=== PATIENT | female | born 1965 | race Caucasian/White ===

== ENCOUNTER → 2020-07-19 13:40 | Outpatient (BNVA) | payer BC, SELFPAY | PROVIDERS: PCP Internal Medicine; Visit Provider Hospitalist ==

== ENCOUNTER 2021-04-29 12:59 | Outpatient (REF) | payer BC, SELFPAY ==
--- NOTE | 2021-04-29 17:29 | PFT_ITS ---
Forced vital capacity is slightly decreased. FEV1 is moderately decreased. XMU98-79 markedly decreased. Post bronchodilator therapy, there is a small, but significant improvement in FEV1, UQK79-49, and MVV. Total lung capacity normal and residual volume is moderately increased. Diffusion capacity normal. CONCLUSION: Moderately severe obstructive airway disorder. There is positive response to bronchodilator therapy. These results are consistent with asthma/COPD overlap syndrome. Clinical correlation is recommended. MD BRIDGER Allen/LUCIO / [id number]
== END 2021-04-29 13:00 | disposition home or self-care (01) ==
LOC: HO.RESP 12:59
PROVIDERS: PCP Internal Medicine; Visit Provider Hospitalist
DX: J44.9 Chronic obstructive pulmonary disease, unspecified (principal)
CPT/HCPCS: 94060; 94727; 94729

== ENCOUNTER → 2021-07-07 12:49 | Outpatient (BNVA) | payer BC, SELFPAY | PROVIDERS: PCP Internal Medicine; Visit Provider Hospitalist | DX: J44.0 Chronic obstructive pulmonary disease with (acute) lower respiratory infection (principal) | CPT/HCPCS: 94640; 99212 ==

== ENCOUNTER 2022-05-01 12:50 | Outpatient (REF) | payer BC, SELFPAY ==
--- NOTE | ~2022-05-01 | XR_ITS ---
EXAMINATION: XR CHEST CLINICAL INFORMATION: COPD COMPARISON: None TECHNIQUE: 2 views of the chest were obtained. FINDINGS: The cardiac and mediastinal contours are stable. The lungs are clear. There is no pleural effusion or pneumothorax. There is curvature of the proximal thoracic spine to the left. XR/XR chest 2V IMPRESSION: No evidence for acute disease in the chest.
--- NOTE | 2022-05-01 17:34 | PFT_ITS ---
Forced vital capacity 74%, FEV1 64%, FEV1/FVC ratio 68. VEQ77-68 38% and MVV is 71%. Post bronchodilator therapy, there is a slight improvement in NXY22-75. Total lung capacity 90% and residual volume is 98%. Diffusion capacity 93%. Conclusion obstructive airway disorder, mild to moderately severe. No response to bronchodilator therapy except for slight improvement in IUS56-90. Clinical correlation is recommended. MD BRIDGER Allen/LUCIO / [id number]
== END 2022-05-01 12:51 | disposition home or self-care (01) ==
LOC: HO.RESP 12:50
PROVIDERS: PCP Internal Medicine Medical Oncology; Visit Provider Hospitalist
DX: J44.9 Chronic obstructive pulmonary disease, unspecified (principal)
CPT/HCPCS: 71046; 94060; 94727; 94729

== ENCOUNTER 2025-02-13 13:32 | Outpatient (AMB) | payer BC, SELFPAY ==
[2025-02-13 13:47] VITALS: BP 100/60; PULSE 80; O2SAT 98; BMI 22.0
--- NOTE | 2025-02-13 13:47 | A.OFFVIS_ITS ---
Vital Signs 3 02/13/25 13:47 Height 5 ft 3 in Weight 124 lb BMI 22.0 BP 100/60 Blood Pressure Location Lt brachial Position Sitting Pulse 80 Pulse Source Pulse Oximeter Pulse Oximetry (%) 98 Oxygen Delivery Method Room Air Intake Visit Reasons: Asthma Allergies No Known Allergies Allergy (Verified 02/13/25 13:55) HPI Comments Details: The patient is a 59-year-old woman with a known history of asthma COPD overlap syndrome. Her last pulmonary function studies demonstrated a moderate degree of obstruction. She did have a chest x-ray which was reasonable. The major issue is that she has significant air trapping noted on her pulmonary function studies. We talked about the importance per sleep breathing and exercises to minimize the air trapping. She is starting to go back to work. She is using a mask the whole days she is at work. This is very uncomfortable for her. She will try to get a cloth mask which should be more comfortable. She should also use got goes or she will to minimize exposure to the COVID-19 infection. The patient has been using Breo daily. She stopped using the singular. She is having increasing nasal congestion and also cough. We talked about restarting the singular S this is a very state medication it for her asthma and also for her nasal congestion and allergies. 07/19/2020 the patient is here for pulmonary follow-up visit. Overall she is doing very well. She does have the Breo that she uses but not all the time. She uses a rescue inhaler less than twice a week. She has been staying active and she is exercising. She denies any significant coughing or any limitations. She has not required any prednisone again. She also stopped using the singular because she did not see any difference. We also looked at her previous pulmonary function studies demonstrating moderate COPD with air trapping. I do for see that her repeat pulmonary function studies are likely to be much improved. The patient also had a chest x-ray back in 2018 demonstrating no acute disease. Will have her come back sometime in late fall and she can have a repeat PFT and chest x-rays to get any baseline. 04/29/2021 the patient is here for a pulmonary follow-up visit. Overall she continues to do well. Denies any significant worsening of her respiratory symptoms. Continues to have some degree of dyspnea on exertion. Pija-aw-vehseqdy severity. She has responded well to the Breo. She really does not use her rescue inhaler. She denies any exposures to secondhand smoke at this time or any potential fumes or toxins. We did review her pulmonary function studies again demonstrating moderate COPD. Will retest her for awful 1 DNA genotype at this time. The patient does have some wheezing on examination. In based on her obstructive airway disease I do think we need to optimize her to Trelegy to improve her overall respiratory capacity. She didn't have her CXR. 07/07/2021 the patient is here for a PE pulmonary follow-up visit. Apparently the patient has been having worsening respiratory symptoms for the last 3 weeks. The patient states that initially started like a viral syndrome. She was tested for COVID and which was negative. Subsequently after that she started developing worsening cough and has not stopped for the last several weeks. She has not been able to sleep because her cough is worse at nighttime. She had been using Trelegy inhaler but she did not feel was helpful. Therefore she wanted to go back to [facility]. In the meantime she did come into the office to be assessed. The patient does have significant wheezing on examination. She was given 1 DuoNeb treatment and he did improve her symptoms and losing her cough. The patient does have a trip coming up to [place] in the coming days. Therefore will treated for COPD exacerbation and also lower respiratory infection. The patient did respond well to the nebulizer and therefore she can consider getting a nebulizer if her symptoms persist when she comes back in [place]. We did review her blood work including alpha-1 antitrypsin genotype which was normal, MM. Will reassess the patient in 3 months. the patient was supposed to have an x-ray and also blood work and they do not appear to be available as of yet. The patient does have a trip planned for Sunday. However, she should undergo an x-ray specially if she is not better. 05/01/2022 the patient is here for a pulmonary follow-up visit. Overall the patient is doing well. She continues use her respiratory therapy as prescribed. She has not required her rescue inhaler. she needs to increase her exercise activity. We did talk about different programs to consider such as the pulmonary wellness online. She did undergo pulmonary function studies which we did review together and also compared to her PFTs from last year. It appears that overall she is doing better significant better in some areas. Although she continues to have a fixed obstruction consistent moderate COPD. The patient is a nonsmoker. Her alpha-1 testing was negative. from an asthma standpoint the patient seems to be doing well on current therapy. We did talk about alternative in additional therapies to consider. She did not do well with Trelegy.. 02/13/2025 the patient is here for a pulmonary follow-up visit. Overall the patient has been doing okay. Although she underwent a CT scan of the heart to assess for any early heart disease. It did last picker a pulmonary nodule and therefore she was sent for referral for a formal CT scan of the chest. I did personally review the CAT scan at [facility] from December demonstrating a 5-6 mm nodular density in the right upper lobe. Appeared to have be punctate with some calcifications. I did try to find her old imaging study that could revealed that area to see if this is acute or chronic but we could not find anything at [facility] or elsewhere. Therefore the patient will need follow-up. The the patient does have a history melanoma that was resected. Based on that close follow-up will be warranted. Will plan to repeat a CAT scan 4 months from the last 1 to follow-up with this irregular 6 mm pulmonary nodule. She has other punctate nodules that are less concerning. From a respiratory status the patient is doing good but she has a cough. The CAT scan also demonstrates evidence of chronic bronchitis consistent with asthmatic bronchitis. Will go ahead and request blood work at this time. She does have inhalers and she does respond well to Breo and also has a rescue inhaler. She has tried other inhalers in the past and has not done well. Will plan to follow-up with her in pre to 4 months after her CAT scan and she is going to undergo blood work to assess for the phenotype of her asthmatic bronchitis. [facility] Medical History (Updated 02/15/25 @ 20:14 by John Shultz MD) Melanoma Pulmonary nodule Asthma COPD (chronic obstructive pulmonary disease) COPD exacerbation Asthma-COPD overlap syndrome Social History Patient Tobacco Use Status: Never used Tobacco Review of Systems Const Reports daytime sleepiness, Reports difficulty sleeping, Denies fever(s) and Denies night sweats ENT Denies change in voice, Denies lip swelling, Denies mouth pain, Reports nasal congestion, Reports nasal discharge and Denies tongue swelling Card Denies chest pain Resp Reports cough and Reports wheezing GI Denies abdominal pain Musc Denies no additional complaints Neuro Denies Neuro-related abnormal movements Psych Denies no additional complaints Neal/Lymph Denies easy bleeding and Denies lymphadenopathy Aller/Immun Denies lip swelling, Denies tongue swelling and Reports wheezing Physical Exam Vital Signs: Last Vital Signs Pulse 80 02/13/25 13:47 BP 100/60 02/13/25 13:47 Pulse Ox 98 02/13/25 13:47 Oxygen Delivery Method Room Air 02/13/25 13:47 BMI result Body Mass Index 22.0 Const General: alert HEENT General nose exam: Abnormal external nose present and Nasal discharge present Eyes Pupils: Equal, round and reactive pupils present Neck Neck: Yes normal visual inspection, Yes full ROM and Yes no lymphadenopathy Chest Chest palpation & inspection: normal inspection of the chest Resp Auscultation: no rhonchi, no wheezes and diminished lung sounds Cardio Rate: regular rate Rhythm: regular rhythm Heart sounds: S1 normal heart sound present and S2 normal heart sound present GI Palpation (GI): Soft to palpation and nontender Auscultation: normal bowel sounds General: Yes no CVA tenderness Back/Spine/Pelvis Back: no CVA tenderness Skin General skin exam: rashes and/or lesions noted Neuro Cranial nerves: Yes Equal, round and reactive pupils present Results Reviewed Results Reviewed: Assessment & Plan Assessment & Plan (1) Pulmonary nodule: Code(s): R91.1 - Solitary pulmonary nodule Category: Medical (2) Melanoma: Code(s): C43.9 - Malignant melanoma of skin, unspecified Category: Medical Qualifiers: Melanoma location: upper extremity including shoulder Laterality: right Qualified Code(s): C43.61 - Malignant melanoma of right upper limb, including shoulder (3) Asthma-COPD overlap syndrome: Code(s): J44.9 - Chronic obstructive pulmonary disease, unspecified Category: Medical (4) COPD (chronic obstructive pulmonary disease): Code(s): J44.9 - Chronic obstructive pulmonary disease, unspecified Category: Medical Qualifiers: COPD type: COPD with acute lower respiratory infection Qualified Code(s): J44.0 - Chronic obstructive pulmonary disease with (acute) lower respiratory infection Plan continue Breo BONG as needed Needs CT chest 3 months, prefers [facility] Bloodwork F/U in 3-4 months Orders: Orders 2 Complete Blood Count Auto Diff 02/13/25 J45.909 - Unspecified asthma, uncomplicated Immunoglobulin E 02/13/25 J45.909 - Unspecified asthma, uncomplicated Erythrocyte Sedimentation Rate 02/13/25 J45.909 - Unspecified asthma, uncomplicated CRIS Reflex Titer and Pattern 02/13/25 J45.909 - Unspecified asthma, uncomplicated Hypersensitive Pneumonitis Prf 02/13/25 J45.909 - Unspecified asthma, uncomplicated, R91.8 - Other nonspecific abnormal finding of lung field CT chest wo IV con 3 Months C43.9 - Malignant melanoma of skin, unspecified, R91.1 - Solitary pulmonary nodule Medications: Changed 2 From albuterol sulfate 90 mcg/actuation (ProAir HFA) 2 puffs inhalation Q6H PRN To albuterol sulfate 90 mcg/actuation (ProAir HFA) 2 puffs inhalation Q6H PRN 3 ea 3RF shortness of breath or wheezing 90 days Refilled 2 Breo Ellipta 100-25 mcg/dose (fluticasone furoate-vilanterol) 1 inh inhalation DAILY 180 ea 3RF 30 days NS J44.9 - Chronic obstructive pulmonary disease, unspecified Coding Level of Care Code Est Pt Level 4 (66788) Complex EM visit Add On G2211 Diagnoses Pulmonary nodule R91.1 Malignant melanoma of right upper extremity including shoulder C43.61 Melanoma location: upper extremity including shoulder Laterality: right Asthma-COPD overlap syndrome J44.9 Chronic obstructive pulmonary disease with acute lower respiratory infection J44.0 COPD type: COPD with acute lower respiratory infection Time Spent (min) 18
== END 2025-02-13 14:34 | disposition home or self-care (01) ==
LOC: HO.HPS 13:33
PROVIDERS: PCP Physician Assistant Medical; Visit Provider Hospitalist
DX: R91.1 Solitary pulmonary nodule (principal); C43.61 Malignant melanoma of right upper limb, including shoulder; J44.9 Chronic obstructive pulmonary disease, unspecified; J44.0 Chronic obstructive pulmonary disease with (acute) lower respiratory infection
CPT/HCPCS: 99214

== ENCOUNTER 2025-02-13 13:32 | Outpatient (REF) | payer BC, SELFPAY ==
--- OUTSIDE RECORDS SUMMARY | 2009-03-09 | XMS_ITS | Encounter Summary ---
Author Organization [facility] Address [address] [place] [phone] Phone Care Team Providers Care Remote Sensing Program Manager Name Role Phone Unavailable Primary Care Provider Unavailabl e Encounter Details Date Type Department Care Team (Late st Contact Info) Description 03/09/2009 Hospital Encounter [facility],Outside Imaging [address] [place] [address] Unknown, Unknown, Social History Tobacco Use Types Packs/Day Years Used Date Smoking Tobacco: Never Smokeless Tobacco: Never Alcohol Use Standard Drinks/Week Comments Yes 0 (1 standard drink = 0.6 oz pur e alcohol) Education Answer Date Recorded Are you interested in more education? Not on jenny e 10/20/2022 Are you concerned about learning? Not on file 10/20/2022 No 10/20/2022 No 10/20/2022 Digital Access Answer Date Recorded No 11/18/2022 No 11/18/2022 No 11/18/2022 Reliable internet access at home? Not on file 11/18/2022 Device with a working camera? Not on file Comments Unknown Sex and Gender Information Value Date Recorded Sex Assigned at Not on file Legal Sex Female 10:32 PM EDT Gender Identity Not on file Sexual Orientation Not on file documented as of this encounter Plan of Treatment Upcoming Encounters Date Type Department Care Team (Late st Contact Info) Description 06/01/2025 2:20 PM EST Office Visit [facility] [address] [place] [id number] Tamara Lennon MD [address] [place] [address] [address] [place] [address] documented as of this encounter Procedures Procedure Name Priority Date/Time Associated Diagnosis Comments US THYROID GLAND OUTSIDE (NO INTERPRETATION) Routine 03/09/2009 12:00 AM EDT documented in this encounter Results * US Thyroid Gland Outside (No Interpretation) (03/09/2009 12:00 AM EDT) Narrative SYSTEMGENERATED, DOCUMENTATION - 01/22/2025 2:48 PM EDT This study is for PACS storage only and not for interpretation. us Unknown Unknown MD [facility] W/OUT INT ERPRETATION Final Result documented in this encounter Visit Diagnoses Not on filedocumented in this encounter Additional Source Comments The information contained in this document represents components of the legal health record. It is not the complete legal health record.[facility]
--- OUTSIDE RECORDS SUMMARY | 2025-02-11 23:59 | XMS_ITS | Continuity of Care Document ---
Author Organization [facility] Address [address] [place] [address]- Care Team Providers Care Telecommunications Administrator Name Role Phone Tosha Medina Primary Care Physician Encounter [facility] NBR [id number] Date(s): 01/12/25 - 02/11/25 [facility] [address] [place] [id number]- Encounter Type: Triage Allergies, Adverse Reactions, Alerts No Known Allergies Immunizations Given and Recorded Vaccine Date Status Refusal Reason influenza virus vaccine, inactivated 04/24/13 Pastor rded influenza virus vaccine, inactivated 04/27/10 Pastor rded Medications Breo Ellipta 100 mcg-25 mcg/inh inhalation powder 1 puffs, Inhalation, Daily, # 30 each, 0 Refills, Maintenance, 08/31/19 11:54:00 AM EDT, Powder Start Date: 08/31/19 Status: Ordered Quantity: 30.0 Unit: each Repeat number: 1 CeleXA 40 mg oral tablet 40 mg, 1, tablet, By Mouth, Daily, # 90 tablet, Refills 3, Tot. Refills 3, Maintenance, 07/24/24 11:30:00 AM EST, Route to Pharmacy Electronically, [facility], Partial fill uponpatient request if the prescription is for a schedule II opioid drug., 161, cm, 04/04/24 15:56:00 EDT, Height Start Date: 07/24/24 Status: Ordered Quantity: 90.0 Unit: tablet Repeat number: 4 Flovent Diskus Inhalation, 2 times a day, 0 Refills, Maintenance, 04/07/21 3:59:00 PM EDT, Partial fill upon patient request if the prescription is for a schedule II opioid drug. Start Date: 04/07/21 Status: Ordered Repeat number: 1 valacyclovir 1 gm oral tablet 20 each, 0 Refill(s), TAKE 2 TABLETS BY MOUTH 1 TIME. REPEAT IN 12 HOURS, 0 Refills, 08/29/24 10:27:00 AM EST, Partial fill upon patient request if the prescription is for a schedule II opioid drug. Start Date: 08/29/24 Status: Ordered Repeat number: 1 Problem List Condition Confirmation Course Effective Dates Status H ealth Status Informant Asthma Confirmed Active Depression Confirmed Active Family history of ovarian cancer Confirmed Active Avulsion fracture of ankle Confirmed Active Goiter Confirmed Active Malignant melanoma Confirmed Active Neck pain Confirmed Active Osteopenia Confirmed Active Encounter for well woman exam with routine gynecological exam Confirmed Active Annual physical exam Confirmed Active Post-nasal drip Confirmed Active Social History Social History Type Response Smoking Status Never smoker entered on: 11/04/15 Sex Sex Representation Female (finding) Patient Care team information Care Team Personnel Name: Tosha Medina Position: S PCO Associate Professional Member Role: PCP Address: [address] [place] [address] Telecom: Care Team Related Persons Name: CASTILLO CHAVARRIA Name: JAMSHID GUZMÁN Insurance Providers Guarantor name: DELVIS GAVINGRAEME Health Plan Information #: 1 Payer: [employer] PPO Payer Identifier: NA Member Number: [id number] Group Number: [id number] Subscriber Identifier: [id number] Relationship to Subscriber: spouse Coverage Type: NA Coverage Verification Date: NA Telecom: NA Address:
--- OUTSIDE RECORDS SUMMARY | 2025-02-13 14:39 | XMS_ITS | Clinical Summary ---
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 marvel's thyroiditis; COMMENT: 06/2014 No aggressive features in thyroid compared to previous U/S; Mohsen's Thyroiditis, multiple sides nodules (L>R); s/p needle biopsy 05/03 Family History Medical History Relation Name Comments Stroke Father Alzheimer's, hy pertension, diabetes Uterine cancer Mother diabetes, art hritis-back, hip replacement, hypertension, depression Relation Name Status Comments Father Mother Social History Tobacco Use Types Packs/Day Years Used Date Smoking Tobacco: Never Smokeless Tobacco: Never Alcohol Use Standard Drinks/Week Comments Yes 0 (1 standard drink = 0.6 oz pur e alcohol) Comments Unknown Sex and Gender Information Value Date Recorded Sex Assigned at Not on file Legal Sex Female 11:19 PM EST Gender Identity Not on file Sexual Orientation Not on file Obstetrics History Plan of Treatment Upcoming Encounters Date Type Department Care Team (Late st Contact Info) Description 03/02/2025 1:15 PM EDT Appointment [facility] Ultrasound [address] [place] [address] Health Maintenance Due Date Last Done Comments Breast Cancer Screening 1965 DTaP,Tdap,and Td Vaccines (1 - Tdap) 1986 Hepatitis B Vaccines (1 of 3 - 19+ 3-dose series) 1986 Pneumococcal Vaccine: 50+ Ye ars (1 of 2 - PCV) 1986 Cervical Cancer Screening: P ap Smear 02/22/1988 Zoster Vaccines (1 of 2) 2017 Colorectal Cancer Screening: Colonoscopy 05/28/2022 HIV Screening 05/28/2022 Hepatitis C Screening 05/28/2022 Social Influencers of Health Screening 05/28/2022 COVID-19 Vaccine (1 - 2023-2 5 season) 2024 Depression Screening 06/25/2024 Influenza Vaccine (#1) 2025 HIB Vaccines Aged Out No longer eligi ble based on patient's age to complete this topic HPV Vaccines Aged Out No longer eligi ble based on patient's age to complete this topic Hepatitis A Vaccines Aged Out No long er eligible based on patient's age to complete this topic IPV Vaccines Aged Out No longer eligi ble based on patient's age to complete this topic MMR Vaccines Aged Out No longer eligi ble based on patient's age to complete this topic Meningococcal ACWY Vaccine Aged Out N o longer eligible based on patient's age to complete this topic Meningococcal B Vaccine Aged Out No l onger eligible based on patient's age to complete this topic RSV Immunization Patients Un desiree 20 months Aged Out No longer eligible b ased on patient's age to complete this topic Varicella Vaccines Aged Out No longer eligible based on patient's age to complete this topic Insurance [facility]) Care Teams Ui Architect Relationship Specialty Start Date End Date Андрей Lord MD PCP - General Internal Medicine 07/16/18
[2025-02-13 14:47] LABS: MANUAL DIFF FLAG NO
[2025-02-13 15:25] LABS: Hematocrit 38.0 % (37.0-47.0); Hemoglobin 12.6 g/dl (12.0-16.0); Imm Gran Abs Auto 0.03 X10*3/uL (0.00-0.03); Imm Gran Pct Auto 0.5 % (0.0-0.4); Lymphocytes Absolute Auto 2.9 X10*3/uL (1.2-4.9); Mean Corpuscular HGB Conc 33.2 g/dl (31.0-35.0); Mean Corpuscular Hemoglobin 31.2 pg (27.0-33.0); Mean Corpuscular Volume 94.1 fL (80.0-98.0); NRBC Abs Auto 0.000 X10*3/uL (0.0-0.012); NRBC Pct Auto 0.0 /100WBC (0.0-0.2); Platelet Count 297 X10*3/uL (160-400); Red Blood Count 4.04 X10*6/uL (4.20-5.50); White Blood Count 5.6 X10*3/uL (4.8-10.8)
[2025-02-19 11:14] LABS: Anti Nuclear Antibody Screen POSITIVE (NEGATIVE); Anti Nuclear Antibody Titer 1:80 titer
[2025-02-20 12:54] LABS: Asperg fumigatus Precip Abs NEGATIVE (NEGATIVE); Micropoly faeni Abs NEGATIVE (NEGATIVE); Saccharo pora viridis Abs NEGATIVE (NEGATIVE); Thermo candidus Abs NEGATIVE (NEGATIVE)
== END 2025-02-13 13:33 | disposition home or self-care (01) ==
LOC: HO.LAB 13:32
PROVIDERS: PCP Physician Assistant Medical; Visit Provider Hospitalist
DX: J44.0 Chronic obstructive pulmonary disease with (acute) lower respiratory infection (principal); R91.1 Solitary pulmonary nodule; R91.8 Other nonspecific abnormal finding of lung field; C43.9 Malignant melanoma of skin, unspecified; C43.61 Malignant melanoma of right upper limb, including shoulder; Z79.899 Other long term (current) drug therapy
CPT/HCPCS: 36415; 82785; 85025; 85652; 86038; 86039; 86331; 86606; 86609